=== PATIENT | male | born 1950 | race Caucasian/White ===

== ENCOUNTER 2022-05-03 07:23 | Emergency (ER) | payer OTHER, MEDICARE ==
[2022-05-03] MEDS ORDERED: EPINEPHrine 1:10,000 1 MG/10 ML Syringe IVPUSH ONE ×2 (07:31→07:35)
[2022-05-03] MEDS ORDERED: EPINEPHrine 1:10,000 1 MG/10 ML Syringe ONE (12:43)
== END 2022-05-03 07:41 | disposition expired ==
LOC: LL.ED 07:23
DX: I46.9 Cardiac arrest, cause unspecified (principal); Z72.0 Tobacco use
CPT/HCPCS: 92950; 99285-25; J0171